=== PATIENT | female | born 1995 | race Asian ===

== ENCOUNTER 2024-12-26 00:23 | Emergency (ER) | payer BC ==
[2024-12-26] MEDS ORDERED: diphenhydrAMINE 50 MG/ML VIAL ONE (00:35)
[2024-12-26] MEDS ORDERED: Famotidine/PF 20 mg/2ml Vial ONE (00:35)
[2024-12-26] MEDS ORDERED: Racepinephrine 2.25% 0.5 ML NEB ONE (00:49)
== END 2024-12-26 02:05 | disposition home or self-care (01) ==
LOC: CSHERS 00:23
DX: T78.2XXA Anaphylactic shock, unspecified, initial encounter (principal)
CPT/HCPCS: 94644; 94760; 96372; 96374; 96375; J0169; J1200; J2919